=== PATIENT | female | born 1960 | race Caucasian/White ===

== ENCOUNTER → 2024-09-04 | Outpatient (CLI) | payer BC ==
--- NOTE | 2024-09-04 14:31 | MR ---
EXAMINATION TYPE: MR knee RT wo con DATE OF EXAM: 09/04/2024 1:51 PM COMPARISON: Radiograph 08/27/2024 CLINICAL INDICATION: Female, 64 years old with history of M25.561 RT KNEE PAIN, Rt knee pain TECHNIQUE: Multiplanar, multisequence imaging of the right knee is performed without IV contrast. FINDINGS: ACL, PCL, MCL, and LCL complex are intact. There is a partial thickness posterior root tear of the medial meniscus as well as an oblique tear wh ich extends through the posterior horn and body. The body is moderately extruded posteriorly against the inner margin of the MCL. Severe cartilage loss throughout the medial compartment with extensive subchondral sclerosis, edema, marginal spurring, and patchy areas of suspected AVN medial femoral condyle. No subarticular collapse is seen. The lateral meniscus is intact. Mild diffuse thinning of lateral compartment articular cartilage volu me. There is moderate irregular cartilage loss along the medial trochlear facet and mild within the media l patellar facet. Marginal spurring is present. Extensor mechanism is intact. Some edema within the suprapatellar fat pad. Small knee joint effusion with moderate chronic synovitis and suspected tiny loose bodies in the supr apatellar pouch. Additional small 4.4 x 1.4 cm Farias cyst. Generalized subcutaneous soft tissue swelling. Some superficial varices noted within the medial knee soft tissues. Normal popliteal artery anatomy and muscle bulk. Mild edema within the upper gastrocnemius musculatur e probably reactive to altered biomechanics versus mild muscle strain. No suspicious bone marrow replacement. IMPRESSION: 1. Severe medial compartmental OA with large areas of full-thickness cartilage loss. Reactive subchon dral edema on both sides of the joint but also with large areas of patchy AVN within the medial femor al condyle. No subarticular collapse. 2. Oblique tear extending through the posterior horn and body of the medial meniscus. Moderate extrus ion of the meniscal body. Partial-thickness posterior root tear as well. 3. Mild overall patellofemoral compartmental OA with cartilage thinning particularly along the medial trochlear facet. 4. Small knee joint effusion with moderate chronic synovitis and a small Farias's cyst. 5. Some edema in the suprapatellar fat pad is nonspecific but may be seen in the setting of fat pad i mpingement syndrome. 6. Generalized subcutaneous soft tissue swelling and some medial superficial varices. [facility], , 09/04/2024 2:29 PM
== END | disposition home or self-care (01) ==
LOC: RADMRIMAIN 13:01
PROVIDERS: ATTEND Orthopaedic Surgery
DX: S83.241A Other tear of medial meniscus, current injury, right knee, initial encounter (principal); M17.11 Unilateral primary osteoarthritis, right knee; M65.90 Unspecified synovitis and tenosynovitis, unspecified site

== ENCOUNTER → 2024-10-19 | Outpatient (CLI) | payer BC ==
[2024-10-19 22:29] LABS: Basophils # (A) 0.05 X 10*3/uL (0.00-0.10); Eosinophils # (A) 0.12 X 10*3/uL (0.04-0.35); Eosinophils % (A) 2.3 %; HCT 41.9 % (37.2-46.3); HGB 12.5 g/dL (12.0-15.0); Lymphocytes # (A) 1.18 X 10*3/uL (0.90-5.00); Lymphocytes % (A) 22.6 %; MCH 26.2 pg (27.0-32.0); MCHC 29.8 g/dL (32.0-37.0); MCV 87.8 FL (80.0-97.0); Mean Platelet Volume 9.6 FL (9.5-12.2); Monocytes # (A) 0.42 X 10*3/uL (0.20-1.00); Monocytes % (A) 8.1 %; NRBC Per 100 WBC 0 X 10*3/uL (0.00-0.01); Neutrophils # (A) 3.43 X 10*3/uL (1.80-7.70); Neutrophils % (A) 65.8 %; Platelet Count 251 X 10*3/uL (140-440); RBC 4.77 X 10*6/uL (4.10-5.20); RDW 13.9 % (11.5-14.5); WBC 5.21 X 10*3/uL (4.50-10.00)
[2024-10-19 22:42] LABS: Blood Urea Nitrogen 15.6 mg/dL (9.0-27.0); Calcium 9.1 mg/dL (8.7-10.3); Carbon Dioxide 24.2 mmol/L (21.6-31.8); Chloride 108 mmol/L (96-109); Glucose 92 mg/dL (70-110); Potassium 4.4 mmol/L (3.5-5.5); Sodium 143 mmol/L (135-145)
[2024-10-20 08:59] LABS: INR 0.95 sec (0.93-1.11); Prothrombin Time 10.9 sec (9.9-11.9)
== END | disposition home or self-care (01) ==
LOC: LABPAT 08:40
PROVIDERS: ATTEND Orthopaedic Surgery
DX: Z22.322 Carrier or suspected carrier of Methicillin resistant Staphylococcus aureus (principal); M17.11 Unilateral primary osteoarthritis, right knee
CPT/HCPCS: 80048; 85025; 85610; 87070

== ENCOUNTER → 2025-01-03 | Outpatient (CLI) | payer BC ==
[2025-01-03 15:05] LABS: Basophils # (A) 0.07 X 10*3/uL (0.00-0.10); Eosinophils # (A) 0.13 X 10*3/uL (0.04-0.35); Eosinophils % (A) 1.8 %; HCT 43.9 % (37.2-46.3); HGB 13.6 g/dL (12.0-15.0); Lymphocytes # (A) 1.63 X 10*3/uL (0.90-5.00); Lymphocytes % (A) 22.6 %; MCH 27.3 pg (27.0-32.0); MCV 88.2 FL (80.0-97.0); Mean Platelet Volume 9.6 FL (9.5-12.2); Monocytes # (A) 0.57 X 10*3/uL (0.20-1.00); Monocytes % (A) 7.9 %; NRBC Per 100 WBC 0 X 10*3/uL (0.00-0.01); Neutrophils # (A) 4.77 X 10*3/uL (1.80-7.70); Neutrophils % (A) 66.3 %; Platelet Count 339 X 10*3/uL (140-440); RBC 4.98 X 10*6/uL (4.10-5.20); RDW 15.3 % (11.5-14.5)
[2025-01-03 15:51] LABS: ALT 12 U/L (8-44); AST 21 U/L (13-35); Albumin 4.4 g/dL (3.8-4.9); Albumin/Globulin Ratio 1.57 Ratio (1.60-3.17); Alkaline Phosphatase 91 U/L (41-126); BUN/Creat Ratio 10.56 Ratio (12.00-20.00); Blood Urea Nitrogen 9.5 mg/dL (9.0-27.0); Calcium 9.8 mg/dL (8.7-10.3); Carbon Dioxide 23.7 mmol/L (21.6-31.8); Chloride 104 mmol/L (96-109); Chol/HDL Ratio 3.16 Ratio; Globulin 2.8 g/dL (1.6-3.3); Glucose 123 mg/dL (70-110); LDL Cholesterol,Calculated 98.5 mg/dL (0.0-131.0); Potassium 4.5 mmol/L (3.5-5.5); Sodium 140 mmol/L (135-145); Total Bilirubin 0.4 mg/dL (0.3-1.2); Total Protein 7.2 g/dL (6.2-8.2)
--- NOTE | 2025-01-06 08:34 | MM ---
Reason for Exam: Screening (asymptomatic). Last mammogram was performed 1 year(s) and 2 month(s) ago. Patient History: Menarche at age 16. Patient has no children. Postmenopausal. Sister had breast cancer. Risk Values: Sarah Beth 5 year model risk: 2.7%. NCI Lifetime model risk: 12.1%. Prior Study Comparison: 09/20/2023 Bilateral MG 3D screening mammo w/cad, [facility] . 10/11/2023 Bilateral MG 3D screening mammo w/cad, [facility] . Tissue Density: There are scattered areas of fibroglandular density. Findings: Analyzed By CAD. There is no suspicious group of microcalcifications in either breast. Asymmetric nodular density seen on both MLO views 9 cm from the nipple on the right and 11 cm on left. Additional views are recommended bilaterally. Overall Assessment: Incomplete: need additional imaging evaluation, BI-RAD 0 Management: Diagnostic Mammogram of both breasts. . Patient should continue monthly self-breast exams. A clinical breast exam by your physician is recommended on an annual basis. This exam should not preclude additional follow-up of suspicious palpable abnormalities. Note on Sarah Beth scores and lifetime risk: 1. A Sarah Beth score greater than 3% is considered moderate risk. If this is the case, consider specialist referral to assess eligibility for a risk reducing agent. 2. If overall lifetime risk for the development of breast cancer is 20% or higher, the patient may qualify for future screening with alternating mammogram and breast MRI. [facility], , 01/06/2025 8:31 AM. Electronically signed and approved by: Robert Sauceda M.D. Radiologis
== END | disposition home or self-care (01) ==
LOC: RADMAMWWP 08:52
PROVIDERS: ATTEND Family Medicine
DX: Z12.31 Encounter for screening mammogram for malignant neoplasm of breast (principal); Z00.00 Encounter for general adult medical examination without abnormal findings; R92.323 Mammographic fibroglandular density, bilateral breasts; Z78.0 Asymptomatic menopausal state; Z80.3 Family history of malignant neoplasm of breast
CPT/HCPCS: 36415; 77067; 80053; 80061; 82306; 84443; 85025

== ENCOUNTER → 2025-01-10 | Outpatient (CLI) | payer BC ==
--- NOTE | 2025-01-10 15:05 | MM ---
Reason for Exam: Additional evaluation requested from abnormal screening. Last screening mammogram was performed less than 1 month ago. Patient History: Menarche at age 16. Patient has no children. Postmenopausal. Sister had breast cancer. Risk Values: Sarah Beth 5 year model risk: 2.7%. NCI Lifetime model risk: 12.1%. Prior Study Comparison: 10/11/2023 Bilateral MG 3D screening mammo w/cad, [facility] . 01/03/2025 Bilateral MG screening mammo w CAD, [facility]. Tissue Density: The breasts are almost entirely fatty. Findings: Analyzed By CAD. Vague nodular densities persist bilaterally. Precautionary six-month follow-up bilateral mammography advised. Overall Assessment: Probably benign, BI-RAD 3 Management: Diagnostic Mammogram of both breasts in 1 year. . Results were given to the patient verbally at the time of exam. Patient should continue monthly self-breast exams. A clinical breast exam by your physician is recommended on an annual basis. This exam should not preclude additional follow-up of suspicious palpable abnormalities. Note on Sarah Beth scores and lifetime risk: 1. A Sarah Beth score greater than 3% is considered moderate risk. If this is the case, consider specialist referral to assess eligibility for a risk reducing agent. 2. If overall lifetime risk for the development of breast cancer is 20% or higher, the patient may qualify for future screening with alternating mammogram and breast MRI. [facility], , 01/10/2025 3:01 PM. Electronically signed and approved by: Rakan Rivera M.D. Radiologis
== END | disposition home or self-care (01) ==
LOC: RADMAMWWP 14:32
PROVIDERS: ATTEND Family Medicine
DX: R92.8 Other abnormal and inconclusive findings on diagnostic imaging of breast (principal); R92.313 Mammographic fatty tissue density, bilateral breasts; Z78.0 Asymptomatic menopausal state; Z80.3 Family history of malignant neoplasm of breast
CPT/HCPCS: 77062; 77066

== ENCOUNTER 2025-05-05 07:51 | Day surgery (SDC) | payer BC ==
--- NOTE | 2025-05-04 22:59 | HP ---
HISTORY AND PHYSICAL DATE OF SURGERY: 05/05/2025. HISTORY OF PRESENT ILLNESS: Hafsa Davis is a 64-year-old patient, seen with persistent right knee stiffness with history of previous total knee arthroplasty. After having options regarding treatment discussed, she elected to proceed with manipulation under anesthesia of right knee. Consent was obtained. PAST MEDICAL HISTORY: Hypertension, hyperlipidemia. SURGICAL HISTORY: Total knee arthroplasty, D and C. DAILY MEDICATIONS: Aleve, losartan, rosuvastatin, vitamins. ALLERGIES: None. SOCIAL HISTORY: She denies tobacco use. PHYSICAL EVALUATION OF THE RIGHT SHOULDER: She has a well-healed anterior incision. Range of motion is -3/4 at 90 degrees. Ligaments are stable. Hip rotation without pain. Distal neurovascular exam intact. Right knee radiographs, stable total knee arthroplasty. IMPRESSION: 1. Right knee adhesive capsulitis. 2. Right total knee arthroplasty. 3. Hypertension. 4. Hyperlipidemia. PLAN: Right knee manipulation under anesthesia. MMODL / IJN: [id number] /
[~2025-05-05 07:51] MED LIST: HYDROmorphone 0.5 MG/0.5 ML SYRINGE IVP PRN
[2025-05-05] MEDS: IV FLUID CONTINUATION 1,000 ML IV ONE (08:15)
[2025-05-05] MEDS: ONDANSETRON 4 MG/2 ML VIAL IVP ONE (08:33)
[2025-05-05] MEDS: DEXAMETHASONE SOD PHOSPHATE 4 MG/ML 1 ML VIAL IV ONE (08:34)
[2025-05-05] MEDS: LACTATED RINGERS 1,000 ML IV SCH (08:39)
[2025-05-05 08:41] VITALS: TEMP 98.2
[2025-05-05] MEDS ORDERED: PROPOFOL 10 MG/ML 20 ML VIAL IV ONE (09:21)
[2025-05-05] MEDS ORDERED: fentaNYL (PF) 50 MCG/ML 2 ML AMP ONE (09:21)
[2025-05-05] MEDS ORDERED: KETOROLAC 15 MG/ML 1 ML VIAL ONE (09:21)
--- NOTE | 2025-05-05 09:33 | P.OP ---
Date of Procedure: 05/05/25 Preoperative Diagnosis: Right knee adhesive capsulitis Postoperative Diagnosis: Right knee adhesive capsulitis Procedure(s) Performed: Manipulation under anesthesia right knee Anesthesia: MAC Surgeon: Isaac Whitaker Estimated Blood Loss (ml): 0 Pathology: none sent Condition: stable Disposition: PACU Indications for Procedure: 64-year-old patient seen with persistent right adhesions and history of previous total knee arthroplasty. After having treatment options discussed, she elected to proceed with manipulation under anesthesia right knee. Operative Findings: See description of procedure Description of Procedure: Patient was taken to a monitored anesthesia area. She received IV sedation by the department of anesthesia. Once sufficient anesthesia was noted I performed a manipulation of the right knee with audible tearing of the adhesions. We achieved full range of motion of the knee. The patient was then awakened having tolerated procedure well.
[2025-05-05 09:45] VITALS: RESP 16
[2025-05-05 10:29] VITALS: BP 117/68; PULSE 65
== END 2025-05-05 10:33 | disposition home or self-care (01) ==
LOC: OR 07:51
PROVIDERS: ATTEND Orthopaedic Surgery
DX: T84.82XA Fibrosis due to internal orthopedic prosthetic devices, implants and grafts, initial encounter (principal); I10 Essential (primary) hypertension; E78.5 Hyperlipidemia, unspecified; E66.01 Morbid (severe) obesity due to excess calories; Z79.899 Other long term (current) drug therapy
CPT/HCPCS: 27570; J1100; J2405; J3010; J1885; J2704